=== PATIENT | female | born 1980 | race Caucasian/White ===

== ENCOUNTER 2020-10-13 16:48 | Emergency (ER) | payer OTHER ==
[2020-10-13] MEDS ORDERED: KEFLEX250 MG PO (22:12)
== END 2020-10-13 22:35 | disposition home or self-care (01) ==
LOC: FER 16:48
DX: S01.511A Laceration without foreign body of lip, initial encounter (principal); S80.02XA Contusion of left knee, initial encounter; S80.01XA Contusion of right knee, initial encounter; M54.9 Dorsalgia, unspecified; Z88.2 Allergy status to sulfonamides; Z88.6 Allergy status to analgesic agent; Z88.8 Allergy status to other drugs, medicaments and biological substances; V49.50XA Passenger injured in collision with unspecified motor vehicles in traffic accident, initial encounter; Y92.410 Unspecified street and highway as the place of occurrence of the external cause
CPT/HCPCS: 70140; 73564